=== PATIENT | male | born 1955 | race Hispanic/Latino ===

== ENCOUNTER 2024-11-22 10:11 | Day surgery (SDC) | payer MEDICARE ==
[2024-11-21 13:35] VITALS: BMI 30.7
[~2024-11-22 10:11] MED LIST: EPINEPHrine 0.3 MG in Ophthalmic Irrigation Solution 500 ML IRR SCH
[2024-11-22] MEDS ORDERED: Cyclopentolate 1% Opth Drop 2 ML BOT ONE (11:27)
[2024-11-22] MEDS ORDERED: PHENYLephrine 2.5% Ophth Soln 15 ml Bottle ONE (11:27)
[2024-11-22] MEDS ORDERED: Midazolam HCl 2 mg/2 ml Vial ONE (12:02)
[2024-11-22] MEDS ORDERED: fentaNYL 50 mcg/mL 1 mL Vial ONE (12:02)
[2024-11-22] MEDS ORDERED: PROPOFOL 20 ML ONE (12:02)
[2024-11-22] MEDS ORDERED: Bupivacaine 0.75% 10 ML VIAL ONE (12:18)
[2024-11-22] MEDS ORDERED: Triamcinolone 40 MG/ML VIAL ONE (12:18)
[2024-11-22] MEDS ORDERED: Lidocaine 1% PF 5 ML VIAL ONE (12:18)
[2024-11-22] MEDS ORDERED: Lidocaine 4% PF 5 ML AMP ONE (12:18)
[2024-11-22] MEDS ORDERED: CEFAZOLIN 1 GM VIAL ONE (12:18)
== END 2024-11-22 13:35 | disposition home or self-care (01) ==
LOC: SDC 10:11
PROVIDERS: ATTEND Ophthalmology Retina Specialist
PROC: 08T53ZZ Resection of Left Vitreous, Percutaneous Approach (ICD-10-PCS; principal; 2024-11-22)
PROC: 08QF3ZZ Repair Left Retina, Percutaneous Approach (ICD-10-PCS; 2024-11-22)
DX: H43.12 Vitreous hemorrhage, left eye (principal); H33.312 Horseshoe tear of retina without detachment, left eye; I10 Essential (primary) hypertension; I25.10 Atherosclerotic heart disease of native coronary artery without angina pectoris; E11.9 Type 2 diabetes mellitus without complications; E78.5 Hyperlipidemia, unspecified; Z95.5 Presence of coronary angioplasty implant and graft; Z95.1 Presence of aortocoronary bypass graft; Z79.82 Long term (current) use of aspirin; Z79.85 Long-term (current) use of injectable non-insulin antidiabetic drugs; Z79.899 Other long term (current) drug therapy
CPT/HCPCS: 67040; J0171; J0690; J2250; J2704; J3010; J3301; J3490